=== PATIENT | female | born 1990 ===

== ENCOUNTER 2016-12-27 18:55 | Emergency (ER) | payer MEDICAID ==
[2016-12-27 19:00] VITALS: BP 118/67; PULSE 84; RESP 20; TEMP 98.3; O2SAT 100; BMI 22.3
--- NOTE | 2016-12-27 19:47 | C.PDOC ---
History Of Present Illness 26 yr old female presents to the ER with complaints of painful hemorrhoids for the past 3 days. Patient reports history of hemorrhoids in the past. Patient denies fever, abdominal pain, diarrhea, constipation, back pain, weakness or numbness. Time Seen by Provider: 12/27/16 19:06 Chief Complaint (Nursing): Female Genitourinary History Per: Patient History/Exam Limitations: no limitations Onset/Duration Of Symptoms: Days (3) Current Symptoms Are (Timing): Still Present Past Medical History Reviewed: Historical Data, Nursing Documentation, Vital Signs Vital Signs: Last Vital Signs Temp 98.3 F 12/27/16 19:00 Pulse 84 12/27/16 19:00 Resp 20 12/27/16 19:00 BP 118/67 12/27/16 19:00 Pulse Ox 100 12/27/16 19:49 Family History: States: No Known Family Hx - Social History Hx Alcohol Use: No Hx Substance Use: No - Immunization History Hx Tetanus Toxoid Vaccination: No Hx Influenza Vaccination: No Hx Pneumococcal Vaccination: No Review Of Systems Except As Marked, All Systems Reviewed And Found Negative. Constitutional: Negative for: Fever Gastrointestinal: Positive for: Other (Painful hemorroids ). Negative for: Abdominal Pain, Diarrhea, Constipation Musculoskeletal: Negative for: Back Pain Neurological: Negative for: Weakness, Numbness Physical Exam - Physical Exam Appears: Well, Non-toxic, No Acute Distress Skin: Warm, Dry, No Rash Head: Atraumatic, Normacephalic Oral Mucosa: Moist Chest: Symmetrical, No Tenderness Cardiovascular: Rhythm Regular, No Murmur Rectal: Hemorrhoids (External ), Other (No thrombosis. No inflamation. No bleeding. ) Back: Normal Inspection, No CVA Tenderness, No Paraspinal Tenderness Extremity: Normal ROM, No Swelling Neurological/Psych: Oriented x3, Normal Speech, Normal Motor ED Course And Treatment O2 Sat by Pulse Oximetry: 100 Disposition - Disposition Referrals: [facility] [Outside] Disposition: HOME/ ROUTINE Disposition Time: 19:45 Condition: STABLE Additional Instructions: Follow up with PMD within 1-2 days. Return to ED if feel worse. Prescriptions: Docusate Sodium [Colace] 100 mg PO TID #30 capsule Hydrocortisone-Pramoxine 1%-1% [Proctofoam-Hc 1%-1%] 1 appl TP 5XD #1 aer Instructions: Hemorrhoids (ED) - Clinical Impression Clinical Impression: External hemorrhoid - PA / [employer] / Resident Statement MD/DO has reviewed & agrees with the documentation as recorded. - Scribe Statement The provider has reviewed the documentation as recorded by the Scribe Tiffanie Pak All medical record entries made by the Scribe were at my direction and personally dictated by me. I have reviewed the chart and agree that the record accurately reflects my personal performance of the history, physical exam, medical decision making, and the department course for this patient. I have also personally directed, reviewed, and agree with the discharge instructions and disposition.
== END 2016-12-27 20:04 | disposition home or self-care (01) ==
LOC: C.ER 18:55
DX: K64.4 Residual hemorrhoidal skin tags (principal)